=== PATIENT | female | born 1985 | race Caucasian/White ===

== ENCOUNTER 2016-06-08 20:26 | Emergency (ER) | payer BC, OTHER | END 2016-06-08 22:24 | disposition home or self-care (01) | LOC: ER 20:26 | DX: J06.9 Acute upper respiratory infection, unspecified (principal); R05 Cough; R50.9 Fever, unspecified; R51 Headache; R11.10 Vomiting, unspecified; R19.7 Diarrhea, unspecified; Z86.14 Personal history of Methicillin resistant Staphylococcus aureus infection; F32.9 Major depressive disorder, single episode, unspecified; Z79.899 Other long term (current) drug therapy | CPT/HCPCS: 87070; 87400; 87880; 99283 ==